=== PATIENT | male | born 1945 | race Caucasian/White ===

== ENCOUNTER 2018-12-05 05:04 | Inpatient (IN) ==
--- NOTE | 2018-11-30 12:53 | MH ---
cc: Yohan Lozano MD DATE OF ADMISSION: 12/05/2018 ADMITTING DIAGNOSIS: Osteoarthritis, right knee. HISTORY OF PRESENT ILLNESS: The patient is a 73-year-old white male who has experienced at least a 2 year history of pain involving his right knee. He noted the onset of his symptoms secondary to a fall which occurred at his summer home in the [facility] or [place] when he sustained a hyperflexion type stress of his right knee. He underwent evaluation at that time with x-ray studies being negative for any acute bony abnormality. He was diagnosed as having a sprain of his knee for which he was advised conservative management. He remains symptomatic with pain about the knee area and was later seen for an orthopedic disposition by Dr. Anderson Alexis. Additional x-ray studies were completed and again no acute bony abnormality was identified. There was some arthritic involvement for which the patient was prescribed ibuprofen and no further disposition completed. During the past year, the patient had remained symptomatic with ongoing discomfort and a sensation of instability and giving way that had influenced all ambulatory activities. He was applying Diclofenac ointment as prescribed by his primary care physician and taking Advil with minimal benefit being noted. He presented to the undersigned physician in May of this past year and at that time, x-ray studies did reveal obvious degenerative change with pronounced narrowing about the medial compartment, intraarticular calcification throughout the medial and lateral compartment with localized accumulation along the medial joint line. Findings and treatment options were reviewed with the patient at that time. He did undergo an MRI scan evaluation of his right knee, the results of which identified medial compartment osteoarthritis with an associated subchondral marrow edema and osteophytosis of both the medial femoral condyle and the medial tibial plateau. A complex radial degenerative tear involving the posterior horn and body of the medial meniscus as well as a nondisplaced horizontal tear of the body of the lateral meniscus and small joint effusion with mild to moderate synovitis being identified. The patient returned to the office in followup disposition and at that time, the findings of the scan were reviewed and treatment options discussed. The pros and cons of continuing with conservative management versus operative intervention primarily involving total knee arthroplasty were outlined in detail. Emphasis was made regarding the fact that the decision to proceed with surgery would be left entirely to the patient's discretion. The patient considered his options in this regard and subsequently indicated his desire to proceed accordingly and in compliance with his wishes, he is currently being admitted in order that the above be accomplished. PAST MEDICAL HISTORY, HOSPITALIZATIONS AND SURGERIES: Have included lumbar laminectomy at the L4-5 level, laparoscopic cholecystectomy, tonsillectomy and adenoidectomy, colonoscopy, correction of deviated nasal septum, lithotripsy and medical management for urinary retention following anesthesia. The patient's medical illnesses include type 2 diabetes, hypertension, elevated cholesterol, GERD, syndrome and sleep apnea for which CPAP is utilized. CURRENT PRESCRIBED MEDICATIONS: 1. Lantus SoloSTAR insulin 100 units per mL; 35 units injection daily. 2. Metformin ER 500 mg twice daily. 3. Glipizide 5 mg one-half tab twice daily. 4. Atorvastatin 40 mg daily. 5. Finasteride 5 mg at bedtime. 6. Tramadol 50 mg taken p.r.n. 7. Omeprazole 40 mg daily. 8. Meclizine 25 mg 3 times daily p.r.n. for vertigo. 9. Triamterene/hydrochlorothiazide 37.5/25 at bedtime. 10. Zofran 4 mg 3 times daily p.r.n. nausea. 11. Cyclobenzaprine 10 mg one-half tab 3 times daily as needed for muscle cramps. 12. Androgen topical gel daily for low testosterone. 13. Lisinopril 5 mg daily. 14. Mucinex 600 mg twice daily. ALLERGIES: THE PATIENT DESCRIBES A DRUG ALLERGY TO CODEINE, WHICH HAS BEEN ASSOCIATED WITH SEVERE HEADACHES; PENICILLIN HAS CAUSE GI IRRITATION AND DIARRHEA AND CIPRO HAS BEEN ASSOCIATED WITH RASH FORMATION. REVIEW OF SYSTEMS: The patient wears both contact lenses and glasses. Denies headache, seizure, or syncope. He has had a history of vertigo as related to fluid retention. Diminished auditory acuity for which hearing aids are utilized. No bleeding gums or dysphagia. Denies cough, shortness of breath, upper respiratory infection. There is a positive history of pneumonia. No angina. He is medically managed for hypertension. His appetite is good. Bowel movements are regular. No hepatitis, ulcers or hemorrhoids. No urinary tract infection. Positive history of kidney stones, status post left lithotripsy; no prostate disease, history of fracture of the left forearm during childhood, treated nonoperatively, chronic low back pain for which the patient does receive pain management intervention. No psychiatric illness. His remaining review of systems is unremarkable and noncontributory. FAMILY HISTORY: The patient has been 51 years. is 71 years of age and indicated to be in good health. One son and 2 daughters indicated to be in good health. FAMILY HISTORY: Positive for hypertension, diabetes, dementia, aneurysm and colon cancer. SOCIAL HISTORY: The patient completed a college education. 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 He denies active use of tobacco for the past 21 years, but had been a 3-pack per day smoker for at least 25 years prior to that time. Ethanol consumption in the form of an occasional beer. PHYSICAL EXAMINATION: GENERAL: Height 6 feet, weight 235 pounds. An alert, oriented, and responsive 73-year-old white male sitting quietly upon the examination table. No obvious distress. HEAD, EARS, EYES, NOSE AND THROAT: Pupils are equally round and reactive to light. Extraocular movements full. Sclerae are clear. External nares clear. External auditory canals clear. Dental intact. Mucous membranes pink and moist. Pharynx clear. NECK: Supple. Active range of motion. Mild discomfort at the extremes of mobility indicated to be chronic in nature. Carotid pulse is palpable bilaterally. Trachea midline. Thyroid without thyroid enlargement. LUNGS: Clear to auscultation and percussion. BACK: No CVA tenderness. No discomfort throughout the dorsolumbar spine. HEART: Regular rate and rhythm. No murmur or gallop. ABDOMEN: Soft, nontender, bowel sounds present. RECTAL: Per primary care physician. EXTREMITIES: Right knee, no obvious swelling or effusion. Slight medial joint line tenderness, without palpable deformity. Apprehension and compression sign negative. Limited mobility towards the extremes of flexion with pain elicited. No appreciable crepitation. No collateral ligamentous laxity. Rubén test and drawer sign negative. Pivot shift and Alessandro sign minimally positive for medial compartment pain. Straight leg raising unremarkable at 80 degrees. Satisfactory mobility of the right hip with no associated pain. Independent gait. NEUROLOGIC: Cranial nerves 2-12 grossly intact, excluding diminished auditory acuity. IMPRESSION: Osteoarthritis, right knee. PLAN: Right total knee arthroplasty. The nature of the planned surgical procedure, the potential complications and risks associated, the expectations of surgery and the consent form have been thoroughly reviewed with the patient in the presence of his prior to admission to the hospital. Brando has indicated his full understanding regarding all of the above and given consent to proceed with treatment as outlined. Medical evaluation and clearance for surgery completed by his primary care physician, Dr. Maribel Eldridge. MD EMERSON Drake/felipa/dave , 12:00 PM , 12:14 PM
[2018-12-05] MEDS ORDERED: Metoprolol Tartrate 25 MG Tablet PO ONE (05:36)
[2018-12-05] MEDS ORDERED: Chlorhexidine Gluconate 2% 1 Pack (2 Cloths) TOPICAL ONE (05:36)
[2018-12-05] MEDS ORDERED: Chlorhexidine 4% Topical 120 APPLIC/120 ML Bottle TOPICAL SCH (05:45)
[2018-12-05] MEDS ORDERED: Ropivacaine 0.5% PF Inj 20 ML Vial ONE (05:53)
[2018-12-05] MEDS ORDERED: Sodium Chlor 0.9% Inj 500 ML IV.SIG SCH (06:00)
[2018-12-05] MEDS ORDERED: Bupivacaine Liposomal PF 1.3% Inj 20 ML Vial ONE (06:36)
[2018-12-05] MEDS: Vancomycin Inj 1,000 MG in Sodium Chlor 0.9% Inj 250 ML IV.SIG SCH ×2 (06:55→21:54)
[2018-12-05] MEDS ORDERED: TRANEXAMIC ACID IV.SIG SCH ×2 (07:00→10:00)
[2018-12-05] MEDS ORDERED: Sodium Chlor 0.9% Inj 50 ML, Bupivacaine Liposo PF 1.3% Inj 20 ML, Bupivacaine 0.25% In... P-ARTICULR SCH ×3 (07:00)
[2018-12-05] MEDS ORDERED: SODIUM CHLOR 0.9% IV.SIG SCH ×2 (07:00→10:00)
[2018-12-05] MEDS ORDERED: GENTAMICIN 240 MG IRRIGATION ONE ×2 (08:05)
[2018-12-05] MEDS ORDERED: SODIUM CHLORIDE 0.9% IRRIGATION ONE ×2 (08:05)
[2018-12-05] MEDS ORDERED: Aluminum/Magnesium/Simethacone Susp 30 ML UDC PO PRN (09:43)
[2018-12-05] MEDS ORDERED: Tranexamic Acid Inj 1,000 MG in Sodium Chlor 0.9% Inj 100 ML IV.SIG ONE (09:43)
[2018-12-05] MEDS ORDERED: Acetaminophen 325 MG Tablet PO PRN (09:43)
[2018-12-05] MEDS ORDERED: HYDROmorphone PF Inj 1 MG/ML Ampul IV.PUSH PRN (09:43)
[2018-12-05] MEDS ORDERED: Zolpidem Tartrate 5 MG Tablet PO PRN (09:43)
[2018-12-05] MEDS ORDERED: Naloxone Inj 0.4 MG/ML Vial IV.PUSH PRN (09:43)
[2018-12-05] MEDS ORDERED: Post-op Orders (for Pharmacy) OTHER STA (09:43)
[2018-12-05] MEDS ORDERED: Bisacodyl 10 MG Supp RECTAL PRN (09:43)
[2018-12-05] MEDS ORDERED: *morphine SULFATE 10 MG/ML PERIprocedure ONLY ONE ×3 (09:45→10:26)
[2018-12-05] MEDS ORDERED: fentaNYL Citrate Inj 100 MCG/2 ML Ampul ONE (09:46)
--- NOTE | 2018-12-05 10:02 | MP ---
cc: Yohan Lozano MD DATE OF OPERATION: 12/05/2018 PREOPERATIVE DIAGNOSIS: Osteoarthritis, right knee. POSTOPERATIVE DIAGNOSIS: Osteoarthritis, right knee. PROCEDURE PERFORMED: Right total knee arthroplasty. SURGEON: Yohan Lozano MD. ANESTHESIA: General endotracheal. INDICATIONS: A 73-year-old white male with a 2-year history of progressive right knee pain as related to osteoarthritis. Had conformed to conservative management in the past, but became progressively more symptomatic with pain with the passage of time. His more current x-ray studies had revealed obvious degenerative changes with pronounced narrowing throughout the medial compartment and intra-articular calcification involving both the medial and lateral compartments with localized accumulation along the medial joint line. Findings and treatment options were reviewed with the patient. The pros and cons of continuing with conservative management versus operative intervention were outlined in detail. Emphasis being made that the decision for surgery would be left entirely to the patient's discretion. Initially, he elected to continue with conservative management, later undergoing an MRI scan, the results of which identified medial compartment osteoarthritis associated with subchondral marrow edema, osteophytosis of both medial femoral condyle and medial tibial plateau, and a complex radial degenerative tear involving the posterior horn and body of the medial meniscus, as well as a nondisplaced horizontal tear involving the body of the lateral meniscus associated with joint effusion and moderate synovitis. The patient returned to the office in followup disposition indicating progressive pain about the right knee that was beginning to interfere with all weightbearing activities. Once again ,treatment options were reviewed. At that time, the patient felt he was ready to proceed with operative treatment involving total knee arthroplasty; and in compliance with his wishes, he was scheduled for admission in order that the above be accomplished. For additional details with regard to his pertinent history, interested parties would be directed to the admitting documentation of his history and physical report. FORMAT: Following the induction of satisfactory general anesthesia by endotracheal intubation as completed per the Department of Anesthesia, a tourniquet was established around the proximal portion of the right lower extremity. The extremity proper was isolated with a U-drape, thereafter being prepped with Betadine solution and draped into a sterile field in the routine manner. Prior to initiation of the actual procedure, the standard timeout protocol was completed. All parameters were appropriately addressed and confirmed by operating room personnel. The extremity was prepped with Betadine solution and thereafter draped into a sterile field in the routine manner. The extremity being elevated for approximately 1 minute, tourniquet inflated to 250 mmHg pressure. A sharp skin incision was initiated midline over the anterior aspect of the knee and developed through underlying subcutaneous tissue with hemostasis maintained by electrocautery. By deepening dissection, the anterior capsule was exposed. The medial capsulotomy completed and the patella subluxed in a lateral orientation. Examination of the joint space revealed significant degenerative changes throughout the medial compartment with complete erosion of articular cartilage and subchondral bone exposed. The degenerative process extended into the patellofemoral articulation. The articular surface of the patella was resected with power saw. The 3-holed guide was utilized for establishing post-holes. The anterior cruciate ligament as well as medial and lateral meniscus structures were sharply excised. A centering hole was placed in the distal aspect of the femur, allowing positioning of the intramedullary guide. The distal femoral cutting jig was attached and the distal femur resected. AP measurement noted 75 mm sizing to be appropriate. The matching cutting block was positioned. Anterior, posterior, and chamfer cuts were completed. The tibial plateau was thereafter subluxed in an anterior orientation allowing positioning of the extramedullary guide. The tibial plateau was resected and measured with 83 mm sizing determined to be satisfactory. A trial reduction followed utilizing a 75 mm anatomic femoral component, an 83 mm tibial base with a 10 mm bearing insert. The knee was readily brought to full extension. There was no laxity with varus and valgus stress at both 0 and 90 degrees flexed posture. Orientation was confirmed as appropriate with measurement of the pelvic guide through the mechanical axis of the knee. Trial reduction followed utilizing a 34 mm standard 3 post-patellar button. Once again, good tracking demonstrated with no tendency towards subluxation. All trial components being removed, the remaining portion of the proximal tibia was prepared for insertion of the permanent component. The joint space was thoroughly lavaged with pulsating antibiotic solution, hemostasis maintained by electrocautery. An autogenous bone plug was inserted into the distal femoral guide hole and thereafter a preparation of Biomet bone cement was utilized in inserting knee components in a sequential fashion, which included an 83 mm fixed cruciate tibial plate to which a 10 mm Vanguard tibial bearing insert was secured with locking verde. The 75 mm Vanguard femoral component was firmly seated onto the distal femur, excess cement being removed. The knee was brought to full extension; and thereafter, the 4-mm standard 3 post-patellar button was attached and maintained in place with patellar clamp while cement hardening was completed. Final range of motion assessment noted good tracking stability throughout the knee. Irrigation was repeated with hemostasis maintained. Autovac drain tubes were inserted through superior stab wounds. The capsule was repaired with #0 Vicryl suture. The remaining portion of the wound was closed in layers in the routine manner, skin margins being reapproximated with a running subcuticular 3-0 Vicryl suture over which Steri-Strips were applied. Xeroform gauze and a bulky dry sterile dressing placed. Tourniquet deflated after 59 minutes of tourniquet time. The patient thereafter being transferred to a hospital bed and returned to the recovery room in satisfactory condition, having tolerated his operative procedure well. Estimated blood loss was approximately 300 mL as determined per anesthesia. All implants were of the [employer]omet helminthologist. MD EMERSON Drake/oscar , 09:37 AM , 09:48 AM
[2018-12-05] MEDS ORDERED: HYDROmorphone PF Inj 0.5 MG/0.5 ML Syringe ONE (10:34)
--- NOTE | 2018-12-05 10:47 | XR ---
EXAM DATE: 12/05/2018 10:38 AM EST AGE/SEX: 73 years / Male INDICATIONS: Post op, right knee surgery. CLINICAL DATA: This is the patient's initial encounter. Patient reports that signs and symptoms have been present for 1 day and indicates a pain score of 5/10. MEDICAL/SURGICAL HISTORY: None. None. COMPARISON: No prior exams available for comparison. FINDINGS: The patient is status post right total knee arthroplasty with prosthesis in good position. CONCLUSION: Status post right total knee arthroplasty with prosthesis in good position. Electronically signed by: Alvin Ramos MD Board Certified Radiologist 12/05/2018 10:45 AM EST
[2018-12-05] MEDS: HYDROmorphone PCA Inj 6 MG/30 ML PCA.VIAL PCA PRN (11:00)
--- NOTE | 2018-12-05 12:58 | P.DCO ---
- Diagnosis (1) Degenerative joint disease of knee, right Status: Acute - Physical Therapy Order: Evaluate and treat, Improve ambulation, Strength and gait training - Home Health Nursing Order: Wound care and dressing changes, Nursing assessment with vital signs - Home Health Aide Order: To assist in: Bathing and personal care, rental representative and meal prep - Security Technician Order: To evaluate: Living conditions/environment, Support services - Case Management Consult Case Management Consult-Home Health: Yes - Certification I have seen patient Brando Gallardo on 12/05/18. My clinical findings support the need for the requested home health care services because: Limited ability to care for self, High risk of falls I certify that my clinical findings support that this patient is homebound because: Post-op weakness, Unsteady gait/balance, Unsafe to leave home unassisted (1) Degenerative joint disease of knee, right Qualifiers: Osteoarthritis type: primary Qualified Code(s): M17.11 - Unilateral primary osteoarthritis, right knee
[2018-12-05] MEDS ORDERED: Dextrose 50% in Water 50 ML Vial IV.PUSH PRN (13:35)
[2018-12-05] MEDS: Insulin NovoLOG Aspart Correctional Sugar Inj SQ SCH ×3 (13:58→22:01)
[2018-12-05] MEDS ORDERED: Insulin NovoLOG Aspart Correctional Sugar Inj SQ ONE (14:01)
--- NOTE | 2018-12-05 15:09 | P.CONIM ---
History of Present Illness Consult date: 12/05/18 Primary Care Provider: Maribel Eldridge Chief Complaint: Pain History of Present Illness: The patient is a 73-year-old male with past medical history significant for diabetes who is presenting to the hospital for an elective right knee replacement. The patient states that about 2 years ago he [place] and since then has had severe right knee and ankle pain. He says he was treated for arthritis for a while but eventually it turned out that his meniscus was ripped out. He has been ambulating with a cane. Because of his gait his left leg has started hurting him. He initially was taking Advil regularly but that was stopped because his kidney function got worse. He has been taking tramadol which he says has not been working that great. He says he [place] He tolerated his procedure well. He was able to eat his lunch. He says generally after surgery he has a hard time urinating. He does endorse prostate problems. Discussed with nursing at the bedside. Review of Systems Review of Systems: all other systems reviewed are negative [facility] Medical History Medical History Chronic kidney disease (Acute) Arthritis (Acute) BPH (benign prostatic hyperplasia) (Acute) Diabetes (Acute) High cholesterol (Acute) History of neurogenic bladder (Acute) Obstructive sleep apnea on CPAP (Acute) Sleep apnea (Acute) Uses continuous positive airway pressure (CPAP) ventilation at home (Acute) Vertigo (Acute) Wears contact lenses (Acute) Wears glasses (Acute) Wears hearing aid in both ears (Acute) Surgical History Surgical History H/O shoulder surgery (Acute) S/P correction of deviated nasal septum (Acute) H/O discectomy (Acute) H/O lithotripsy (Acute) History of vasectomy (Acute) Hx of tonsillectomy (Acute) Family History Family History Other Colon cancer Diabetes Hypertension Social History Social History Substance History: No History of Abuse Second Hand Smoke Exposure: No Smoking Status: Former smoker How Often Do You Have a Drink Containing Alcohol: Monthly or less Recent Travel in [facility] within the Last 8 Weeks: Yes Recent Out of Country Travel within the Last 8 Weeks: No Medications and Allergies Allergies Allergy/AdvReac Type Severity Reaction Status Date / Time ciprofloxacin Allergy Intermediate Rash Verified 12/05/18 05:57 codeine AdvReac Intermediate Headache Verified 12/05/18 05:57 Home Medications Medication Instructions Recorded Confirmed Type atorvastatin 40 mg PO QPM 11/16/18 12/05/18 History cyclobenzaprine 5 mg PO TID PRN 11/16/18 12/05/18 History finasteride 5 mg PO HS 11/16/18 12/05/18 History glipizide 5 mg PO BID 11/16/18 12/05/18 History insulin glargine [Lantus Solostar 50 unit SUBCUT HS 11/16/18 12/05/18 History U-100 Insulin] lisinopril 5 mg PO DAILY 11/16/18 12/05/18 History meclizine 25 mg PO TID PRN 11/16/18 12/05/18 History omeprazole 40 mg PO DAILY 11/16/18 12/05/18 History ondansetron 4 mg PO TID PRN 11/16/18 12/05/18 History testosterone [AndroGel] 2 pump TRANSDERMAL DAILY 11/16/18 12/05/18 History tramadol 100 mg PO Q6H PRN 11/16/18 12/05/18 History triamterene-hydrochlorothiazid 1 tab PO EVERY OTHER DAY 11/16/18 12/05/18 History Active Medications: Active Medications Acetaminophen (Tylenol) 650 mg PO Q6H PRN PRN Reason: FEVER > 102 F Al Hydrox/Mg Hydrox/Simethicone (Mag-Al Plus Susp Liq) 30 ml PO Q6H PRN PRN Reason: INDIGESTION Al Hydroxide/Mg Hydroxide (Milk Of Magnesia Liq) 30 ml PO BID PRN PRN Reason: Mild Constipation Aspirin (Aspirin) 325 mg PO BID [facility] Atorvastatin Calcium (Lipitor) 40 mg PO QPM [facility] Bisacodyl (Dulcolax Supp) 10 mg RECTAL DAILY PRN PRN Reason: SEVERE CONSITIPATION Chlorhexidine Gluconate (Hibiclens 4% Topical) 1 applicatio TOPICAL ONCE [facility] Stop: 12/09/18 05:44 Last Admin: 12/05/18 05:45 Dose: 1 applicatio Cyclobenzaprine HCl (Flexeril) 5 mg PO TID PRN PRN Reason: SPASM Dextrose (D50w Vial) 50 ml IV.PUSH UNSCH PRN PRN Reason: PER HYPOGLYCEMIA PROTOCOL Finasteride (Proscar) 5 mg PO HS [facility] Glipizide (Glucotrol) 5 mg PO BID [facility] Glucagon (Glucagon Inj) 1 mg OTHER PRN PRN PRN Reason: for Hypoglycemia Protocol Hydromorphone HCl (Dilaudid Pf Inj) 1 mg IV.PUSH Q3H PRN PRN Reason: BREAKTHROUGH PAIN Stop: 12/06/18 09:42 Vancomycin HCl 1,000 mg/ (Sodium Chloride) 250 mls @ 250 mls/hr IV.SIG REAL ESTATE UNDERWRITER [facility] Stop: 12/08/18 05:34 Last Infusion: 12/05/18 07:59 Dose: Infused Sodium Chloride (Ns Inj) 500 mls @ 30 mls/hr IV.SIG .Q10H [facility] Last Admin: 12/05/18 06:17 Dose: Not Given Hydromorphone/Sodium Chloride (Dilaudid [employer] Delivery Driver Inj) 6 mg in 30 mls @ 0 mls/hr BREWMASTER UNSCH PRN PRN Reason: prn pain Last Admin: 12/05/18 11:00 Dose: 0 mls/hr Lactated Ringer's (Lr 1000 Ml Inj) 1,000 mls @ 80 mls/hr IV.CONT .[id number] [facility] Last Admin: 12/05/18 10:42 Dose: 80 mls/hr Vancomycin/Sodium Chloride (Vancomycin Inj) 1 gm in 200 mls @ 200 mls/hr IV.SIG Q12H [facility] Stop: 12/06/18 07:59 Insulin Aspart (Novolog Insulin Correctional Sugar Inj) 0 unit SQ [facility]; Protocol Last Admin: 12/05/18 13:58 Dose: 3 unit Insulin Detemir (Levemir Inj) 30 unit SQ HS [facility] Lactulose (Lactulose Liq) 30 ml PO DAILY PRN PRN Reason: SEVERE CONSITIPATION Lisinopril (Prinivil) 5 mg PO DAILY [facility] Meclizine HCl (Antivert) 25 mg PO TID PRN PRN Reason: VERTIGO Miscellaneous (Pill Splitter) 1 each OTHER UNSCH [facility] Miscellaneous Information (Misc Nursing Information) 0 each OTHER UNSCH PRN PRN Reason: SEE DOSE INSTRUCTIONS Miscellaneous Information (Misc Nursing Information) 0 each OTHER UNSCH PRN PRN Reason: SEE LABEL COMMENTS Stop: 12/06/18 10:50 Naloxone HCl (Narcan Inj) 0.4 mg IV.PUSH PRN PRN PRN Reason: SEE LABEL COMMENTS Ondansetron HCl (Zofran Odt) 4 mg PO TID PRN PRN Reason: Nausea Ondansetron HCl (Zofran Inj) 4 mg IV.PUSH Q6H PRN PRN Reason: NAUSEA OR VOMITING Pantoprazole Sodium (Protonix) 40 mg PO DAILY [facility] Patient Own Narcotic Med 1 [Androgel 1. 62% Gel] 0 each TOPICAL DAILY [facility] Povidone Iodine (Betadine 7.5% Scrub) 1 applicatio TOPICAL ONCE [facility] Stop: 12/09/18 05:59 Last Admin: 12/05/18 06:17 Dose: Not Given Senna/Docusate Sodium (Hetal-Colace) 1 tab PO BID [facility] Sennosides (Senokot) 17.2 mg PO BID PRN PRN Reason: Moderate Constipation Sodium Chloride (Ns Flush) 2 ml IV.FLUSH BID [facility] Sodium Chloride (Ns Flush) 2 ml IV.FLUSH PRN PRN PRN Reason: FLUSH AFTER USING IV ACCESS Tramadol HCl (Ultram) 100 mg PO Q6H PRN PRN Reason: Pain 6-10 Tramadol HCl (Ultram) 50 mg PO Q4H PRN PRN Reason: PAIN LESS THAN 5 ON SCALE Triamterene/HCTZ (Maxzide 37.5 Mg-25 Mg) 1 tab PO EVERY OTHER DAY [facility] Zolpidem Tartrate (Ambien) 5 mg PO HS PRN PRN Reason: INSOMNIA Physical Exam Vital signs: Last Vital Signs Temp 97.8 F 12/05/18 12:00 Pulse 86 12/05/18 14:00 Resp 18 12/05/18 14:00 BP 112/83 12/05/18 14:00 Pulse Ox 96 12/05/18 14:00 Intake & Output 12/03/18 12/04/18 12/05/18 12/06/18 06:59 06:59 06:59 06:59 Intake Total 849.98 / 849.98 Output Total 1050 / 1050 Balance -200.02 / -200.02 Weight 109.8 kg Narrative: General: NAD HEENT: NC, AT Lungs: CTAB Cardiac: RRR Abdomen: Soft, NT, ND Extremities: RLE bandaged Neuro: No gross deficits Results Imaging Impressions Knee X-Ray 12/05/18 09:41 CONCLUSION: Status post right total knee arthroplasty with prosthesis in good position. ABG Impressions Knee X-Ray 12/05/18 09:41 CONCLUSION: Status post right total knee arthroplasty with prosthesis in good position. Assessment and Plan (1) Degenerative joint disease of knee, right: Code(s): M17.11 - Unilateral primary osteoarthritis, right knee Status: Acute Plan Osteoarthritis Status post right knee replacement 12/05/2018. -Wound care, weightbearing and anticoagulation per surgery. -Rehab efforts. -Incentive spirometry. -Pain control with a bowel regimen. BPH The patient usually has urinary retention following surgery. -Straight cath as needed. -Outpatient follow-up with urology. Diabetes On p.o. meds and insulin as an outpatient. -Continue home regimen, but reduce insulin dose. -Insulin sliding scale. Hypertension Chronic. -Continue home regimen and give clonidine as needed. Chronic kidney disease Seems to be at baseline. -Avoid nephrotoxins and monitor. PPx: Per surgery _ (1) Degenerative joint disease of knee, right Qualifiers: Osteoarthritis type: primary Qualified Code(s): M17.11 - Unilateral primary osteoarthritis, right knee
[2018-12-05] MEDS ORDERED: Insulin NovoLOG Aspart Correctional Sugar Inj SQ SCH (17:00)
[2018-12-05] MEDS ORDERED: Vancomycin Inj 1 GM/200 ML PIGGYBACK IV.SIG SCH (19:00)
[2018-12-05] MEDS ORDERED: INSULIN GLARGINE 50 UNIT SQ SCH (21:00)
[2018-12-05] MEDS: Finasteride 5 MG Tablet PO SCH (21:50)
[2018-12-05] MEDS: Senna/Docusate Sodium 8.6/50 MG Tablet PO SCH (21:50)
[2018-12-05] MEDS: glipiZIDE 5 MG Tablet PO SCH (21:51)
[2018-12-05] MEDS: Aspirin 325 MG Tablet PO SCH (21:51)
[2018-12-05] MEDS: Insulin Detemir Inj 1,000 UNIT/10 ML Vial SQ SCH (22:01)
[2018-12-06 07:02] LABS: Hematocrit 34.3 % (39.0-51.0); Hemoglobin 11.5 gm/dL (13.0-17.0); Mean Corpuscular HGB Conc 33.5 % (32.0-36.0); Mean Corpuscular Hemoglobin 29.9 pg (27.0-34.0); Mean Corpuscular Volume 89.1 fL (80.0-100.0); Mean Platelet Volume 8.9 fL (7.0-11.0); Platelet Count 172 th/mm3 (150-450); Red Blood Count 3.85 mil/mm3 (4.50-5.90); Red Cell Distribution Width 14.9 % (11.6-17.2); White Blood Count 11.4 th/mm3 (4.0-11.0)
[2018-12-06 07:25] LABS: Calcium 8.2 mg/dL (8.5-10.1); Carbon Dioxide 23.1 meq/L (21.0-32.0); Potassium 4.2 meq/L (3.5-5.1)
[2018-12-06] MEDS ORDERED: Sod Chloride 0.9% Inj 1,000 ML IV.CONT SCH (07:41)
[2018-12-06] MEDS: Lisinopril 5 MG Tablet PO SCH (08:46)
[2018-12-06] MEDS: Senna/Docusate Sodium 8.6/50 MG Tablet PO SCH ×2 (08:46→20:10)
[2018-12-06] MEDS: glipiZIDE 5 MG Tablet PO SCH ×2 (08:47→20:10)
[2018-12-06] MEDS: Aspirin 325 MG Tablet PO SCH ×2 (08:47→20:10)
[2018-12-06] MEDS: Vancomycin Inj 1,000 MG in Sodium Chlor 0.9% Inj 250 ML IV.SIG SCH ×2 (08:50→09:00)
[2018-12-06] MEDS ORDERED: TESTOSTERONE 1.62% TOPICAL SCH (09:00)
[2018-12-06] MEDS: HYDROmorphone PCA Inj 6 MG/30 ML PCA.VIAL PCA PRN (09:39)
--- NOTE | 2018-12-06 11:25 | P.PNIM ---
Physical Exam Vital signs: Vital Signs 12/05/18 11:30 12/05/18 12:00 12/05/18 13:00 Temperature 97.8 F Pulse Rate 84 83 91 H Respiratory Rate 20 23 21 Blood Pressure 155/94 H 151/70 H 119/82 Pulse Oximetry 100 100 100 12/05/18 14:00 12/05/18 16:00 12/05/18 20:07 Temperature 98.9 F 99.4 F Pulse Rate 86 95 H 89 Respiratory Rate 18 18 18 Blood Pressure 112/83 137/61 144/68 H Pulse Oximetry 96 97 97 12/05/18 23:40 12/06/18 04:35 12/06/18 08:23 Temperature 100 F H 99.2 F 97.3 F L Pulse Rate 88 96 H 89 Respiratory Rate 20 18 18 Blood Pressure 139/63 149/65 H 160/72 H Pulse Oximetry 96 95 97 Intake & Output 12/05/18 12/06/18 12/06/18 18:59 06:59 18:59 Intake Total 849.98 / 849.98 1969 / 1969 Output Total 1140 / 1140 1350 / 1350 Balance -290.02 / -290.02 620 / 620 Weight 115.4 kg Intake: IV 360.98 / 360.98 1250 / 1250 LR 1000 mL Inj 1,000 ML @ 80 1000 / 1000 mls/hr IV.CONT .[id number] [facility] Rx# :[id number] Cyklokapron Inj 1,098 MG In NS 110.98 / 110.98 Inj 100 ML @ 200 mls/hr IV.SIG ONCE [facility] Rx#:[id number] Vancomycin Inj 1,000 MG In NS 250 / 250 250 / 250 Inj 250 ML @ 200 mls/hr IV.SIG Q12H [facility] Rx#:[id number] Oral 720 / 720 Anesthesia Amount 489 / 489 Output: Urine 400 / 400 Estimated Blood Loss 300 / 300 Urine Amount (Catheter) 600 / 600 800 / 800 Straight 600 / 600 800 / 800 Wound Drainage 240 / 240 150 / 150 # 1 Right Knee 240 / 240 150 / 150 Other: Date of Last Bowel Movement 12/05/18 12/05/18 12/05/18 Urinary Catheter Management Straight: Cath placed during this visit: yes, but has since been removed by the nurse Reason for continuing: Not indwelling catheter Insertion date: 12/05/18 Insertion time: 21:45 Removal date: 12/05/18 Removal time: 22:00 Results Labs CBC & Chem 7: 12/06/18 05:05 12/06/18 06:05 Imaging Imaging: Impressions Knee X-Ray 12/05/18 09:41 CONCLUSION: Status post right total knee arthroplasty with prosthesis in good position. Assessment and Plan (1) Degenerative joint disease of knee, right: Code(s): M17.11 - Unilateral primary osteoarthritis, right knee Status: Acute Plan The patient is a 73-year-old male with past medical history significant for diabetes who is presenting to the hospital for an elective right knee replacement. The patient states that about 2 years ago [place] and since then has had severe right knee and ankle pain. Osteoarthritis Status post right knee replacement 12/05/2018. -Wound care, weightbearing and anticoagulation per surgery. -PT Rehab per protocol -encourage use of Incentive spirometry. -Pain control with a bowel regimen. -may have ice pack, prn BPH The patient usually has urinary retention following surgery. -Straight cath as needed. -Outpatient follow-up with urology. Diabetes mellitus type II On p.o. meds and insulin as an outpatient. -Continue home regimen, continue glipizide, and did decrease insulin home dose -Monitor blood sugar before meals and at bedtime with insulin sliding scale. Hypertension Chronic. -Continue home regimen, lisinopril, and Lopressor, - give clonidine as needed. Acute on Chronic kidney disease -Creatinine Elevated post op -start IVF -Avoid nephrotoxins -recheck BMP in am, monitor. PPx: Aspirin twice daily per Ortho Code Status: Full code Discussed Condition With: Patient, , and nurse Discharge Planning: Discharge planning per Ortho recommendation, likely tomorrow Progress Note: Quality VTE Deep Vein Thrombosis/Pulmonary Embolism Present on Admission: No _ (1) Degenerative joint disease of knee, right Qualifiers: Osteoarthritis type: primary Qualified Code(s): M17.11 - Unilateral primary osteoarthritis, right knee
[2018-12-06] MEDS: Insulin NovoLOG Aspart Correctional Sugar Inj SQ SCH ×2 (11:48→21:48)
[2018-12-06] MEDS: Insulin Detemir Inj 1,000 UNIT/10 ML Vial SQ SCH (20:10)
[2018-12-06] MEDS: Finasteride 5 MG Tablet PO SCH (20:10)
[2018-12-07 06:13] LABS: Calcium 8.3 mg/dL (8.5-10.1); Carbon Dioxide 24.6 meq/L (21.0-32.0); Potassium 4.3 meq/L (3.5-5.1)
[2018-12-07 06:32] VITALS: RESP 19
--- NOTE | 2018-12-07 07:30 | MD ---
cc: Yohan Lozano MD, Jesse MD DATE OF DISCHARGE: 12/07/2018 ADMITTING DIAGNOSIS: Osteoarthritis, right knee. DISCHARGE DIAGNOSIS: Osteoarthritis, right knee. HISTORY: A 73-year-old white male with a 2 year history of progressive right knee pain as related to osteoarthritis. Had conformed to conservative management in the past, but became progressively more symptomatic with pain. With the passage of time. He had undergone initial orthopedic evaluation at which time, he was advised that his arthritic condition and being prescribed ibuprofen with no further disposition being completed. He was later seen by the undersigned physician and at that time, x-ray studies revealed obvious degenerative changes with pronounced narrowing throughout the medial compartment, intra-articular calcification about both medial and lateral compartments, for which findings and treatment options were reviewed. A subsequent MRI scan did identify medial compartment osteoarthritis with associated subchondral marrow edema and osteophytosis in both medial femoral condyle and medial tibial plateau. There was a complex radial degenerative tear involving the posterior horn and body of the medial meniscus as well as a nondisplaced horizontal tear in the body of the lateral meniscus with a small joint effusion and moderate synovitis. These findings were reviewed. Treatment options discussed. Pros and cons of continued conservative management versus operative intervention involving total knee arthroplasty were outlined in detail. Emphasis was made regarding the fact that the decision to proceed with surgery would be left entirely to the patient's discretion. The patient considered his options in this regard and expressed his desire to proceed accordingly and in compliance with his wishes, he was scheduled for admission at this time in order that the above be accomplished. PHYSICAL EXAMINATION: His physical examination at the time of admission revealed no obvious swelling or knee effusion. There was medial joint line tenderness, without palpable deformity. Apprehension and compression sign were negative. Limited mobility toward the extremes of flexion with pain associated. No crepitation. No collateral ligamentous laxity. Rubén test and drawer sign negative. Pivot shift and Alessandro sign positive. Straight leg raising unremarkable at 80 degrees. Satisfactory mobility of the right hip with no associated pain. Independent gait. HOSPITAL COURSE: Prior to admission to the hospital, the patient had undergone medical evaluation and clearance for surgery as completed by his primary care physician, Dr. Nirmal Eldridge. He was taken to the operating room on 12/05/2018 and on that date underwent a right total knee arthroplasty completed in an uncomplicated manner. The patient was noted to have tolerated the operative procedure well. His postoperative course stable thereafter. Hemoglobin and hematocrit assessment postoperatively was 11.5 and 34.3 respectively. The patient was progressively mobilized under the guidance of physical therapy being permitted weightbearing to tolerance about the right lower extremity. Followup examination of his surgical wound noted to be intact, healing favorably with no evidence of infection. Medical followup per the hospitalist service. DVT prophylaxis initiated. Ordnance Engineer consulted to assist with discharge planning. The patient indicated his desire to be discharged home and continue his rehabilitation on an outpatient basis. Plans were finalized in this regard and pending medical clearance, he was scheduled for discharge on the second postoperative day, at which time he was noted to be making favorable progress with regard to his rehabilitation program. He was scheduled to be seen in office followup in approximately 4 weeks. His condition at the time of discharge was stable and prognosis favorable. DISCHARGE MEDICATIONS: Included: 1. Hydrocodone 5/325, #30. 2. Aspirin 325 mg 1 tab twice daily for 3 weeks, #40. MD EMERSON Drake/debbie/manoj , 06:48 AM , 06:56 AM
[2018-12-07] MEDS: Lisinopril 5 MG Tablet PO SCH (08:35)
[2018-12-07] MEDS: Aspirin 325 MG Tablet PO SCH (08:36)
[2018-12-07] MEDS: glipiZIDE 5 MG Tablet PO SCH (08:42)
[2018-12-07] MEDS: Senna/Docusate Sodium 8.6/50 MG Tablet PO SCH (08:42)
[2018-12-07] MEDS ORDERED: Triamterene/HCTZ 37.5 MG/25 MG Tablet PO SCH (09:00)
[2018-12-07 09:10] VITALS: BP 145/65; PULSE 91; TEMP 97.2; O2SAT 97
--- NOTE | 2018-12-07 09:17 | P.PNIM ---
Subjective Interval history: Follow-up visit for osteoarthritis, status post right knee replacement, BPH,Diabetes mellitus type 2, hypertension, and acute kidney injury. Patient seen and examined laying in bed, stated ready to go home. Discussed pain medication and trying to wean and change to [place] for pain control. Patient states that tramadol does not work or does not help for his pain.Patient stated pain is controlled right now with the STORE ASSOCIATE pump however have a change to p.o. medication yet. Patient stated had not had bowel movement yet but had been passing gas. Discussed sagittal softener and laxative to be given today. Patient also discussed he is diabetic and wanted his medication before he eats breakfast. Discussed with nursing. Patient denies any headache or dizziness, denies any chest pain or shortness of breath, denies any abdominal pain, nausea, vomiting, diarrhea or constipation. Patient denies any fever or chills. Physical Exam Vital signs: Vital Signs 12/06/18 11:45 12/06/18 16:34 12/06/18 21:01 Temperature 97.7 F 99.1 F 99 F Pulse Rate 88 89 92 H Respiratory Rate 18 18 17 Blood Pressure 110/53 L 138/71 140/69 Pulse Oximetry 95 97 96 12/06/18 23:22 12/07/18 05:44 Temperature 98.6 F 100 F H Pulse Rate 98 H 87 Respiratory Rate 18 19 Blood Pressure 152/66 H 151/68 H Pulse Oximetry 98 96 Intake & Output 12/06/18 12/07/18 12/07/18 18:59 06:59 18:59 Intake Total 1000 / 1000 1220 / 1220 Output Total 900 / 900 Balance 100 / 100 1220 / 1220 Weight 108.3 kg Intake: IV 1000 / 1000 1000 / 1000 LR 1000 mL Inj 1,000 ML @ 80 1000 / 1000 1000 / 1000 mls/hr IV.CONT .[id number] [facility] Rx# :[id number] Oral 220 / 220 Output: Urine 900 / 900 Other: # Voids 3 Date of Last Bowel Movement 12/05/18 12/05/18 # Bowel Movements 0 Narrative: GENERAL: Well-developed, well-nourished, male in no apparent distress SKIN: Warm and dry. HEAD: Atraumatic. Normocephalic. EYES: Pupils equal and round. No scleral icterus. No injection or drainage. ENT: No nasal bleeding or discharge. Mucous membranes pink and moist. NECK: Trachea midline. No JVD. CARDIOVASCULAR: Regular rate and rhythm. RESPIRATORY: No accessory muscle use. Clear to auscultation. Breath sounds equal bilaterally. GASTROINTESTINAL: Abdomen soft, non-tender, nondistended. Hepatic and splenic margins not palpable. MUSCULOSKELETAL: Extremities without clubbing, cyanosis.Right knee incision dressed, clean dry and intact, edema noted in Right knee area and right lower extremity. NEUROLOGICAL: Awake and alert. No obvious cranial nerve deficits. Motor grossly within normal limits. Five out of 5 muscle strength in the arms and legsExam right lower extremity with limited range of motion. Normal speech. PSYCHIATRIC: Appropriate mood and affect; insight and judgment normal. Urinary Catheter Management Straight: Cath placed during this visit: yes, but has since been removed by the nurse Reason for continuing: Not indwelling catheter Insertion date: 12/05/18 Insertion time: 21:45 Removal date: 12/05/18 Removal time: 22:00 Results Labs CBC & Chem 7: 12/06/18 05:05 12/07/18 04:36 Assessment and Plan (1) Degenerative joint disease of knee, right: Code(s): M17.11 - Unilateral primary osteoarthritis, right knee Status: Acute Plan The patient is a 73-year-old male with past medical history significant for diabetes who is presenting to the hospital for an elective right knee replacement. The patient states that about 2 years ago [place] and since then has had severe right knee and ankle pain. Osteoarthritis Status post right knee replacement 12/05/2018. -Wound care, weightbearing and anticoagulation per surgery. -PT Rehab per protocol -encourage use of Incentive spirometry. -Pain control with a bowel regimen. -may have ice pack, prn -cleared with Ortho Dr Lozano for discharge, follow-up in 4 weeks BPH The patient usually has urinary retention following surgery. -Straight cath as needed. -Outpatient follow-up with urology. Diabetes mellitus type II On p.o. meds and insulin as an outpatient. -Continue home regimen, continue glipizide, and did decrease insulin home dose -Monitor blood sugar before meals and at bedtime with insulin sliding scale. Hypertension Chronic. -Continue home regimen, lisinopril, and Lopressor, - give clonidine as needed. Acute on Chronic kidney disease -Creatinine Elevated Improving -s/p IVF -Avoid nephrotoxins -recheck BMP in 1 week and follow up with PCP -encouraged increase fluid intake PPx: Aspirin twice daily per Ortho Patient medically clear for discharge, Follow up with PCP Dr Eldridge in 1 week. Thank you for your consultation. Discharge Planning: Discharge planning per Ortho recommendation, with HHC/PT rehab for home. reinforcing steel worker wire mesh pls assist. Progress Note: Quality VTE Deep Vein Thrombosis/Pulmonary Embolism Present on Admission: No _ (1) Degenerative joint disease of knee, right Qualifiers: Osteoarthritis type: primary Qualified Code(s): M17.11 - Unilateral primary osteoarthritis, right knee
[2018-12-07] MEDS: Insulin NovoLOG Aspart Correctional Sugar Inj SQ SCH (10:59)
== END 2018-12-07 11:07 | disposition home health service (06) | DRG 470 ==
LOC: HSDI 05:04 → N06 15:13
PROVIDERS: ADMIT Orthopaedic Surgery; ATTEND Orthopaedic Surgery
DX: Z97.4 Presence of external hearing-aid; M23.221 Derangement of posterior horn of medial meniscus due to old tear or injury, right knee; R33.8 Other retention of urine; M17.11 Unilateral primary osteoarthritis, right knee; R42 Dizziness and giddiness; Z87.891 Personal history of nicotine dependence; I12.9 Hypertensive chronic kidney disease with stage 1 through stage 4 chronic kidney disease, or unspecified chronic kidney disease; Z83.3 Family history of diabetes mellitus; E11.22 Type 2 diabetes mellitus with diabetic chronic kidney disease; R53.1 Weakness; M23.200 Derangement of unspecified lateral meniscus due to old tear or injury, right knee; M25.461 Effusion, right knee; M65.9 Synovitis and tenosynovitis, unspecified; N40.1 Benign prostatic hyperplasia with lower urinary tract symptoms; N17.9 Acute kidney failure, unspecified; Z79.4 Long term (current) use of insulin; Z96.651 Presence of right artificial knee joint; K21.9 Gastro-esophageal reflux disease without esophagitis; G47.33 Obstructive sleep apnea (adult) (pediatric); N18.9 Chronic kidney disease, unspecified; E78.00 Pure hypercholesterolemia, unspecified
CPT/HCPCS: 51798; 73560; 80048; 82948; 82962; 85027; 86850; 86900; 86901; 88300; 88305; 94150; 94664; 97110; 97116; 97150; 97162; C1776; C9290; J0131; J1170; J1815; J2250; J2270; J2795; J3010; J3370; J7050; J7120; L1830